=== PATIENT | male | born 1975 | race Caucasian/White ===

== ENCOUNTER 2017-04-03 08:23 | Day surgery (SDC) | payer MEDICARE, BC ==
--- NOTE | 2017-04-03 06:11 | History and Physical Report ---
DATE: 04/03/2017. CHIEF COMPLAINT AND HISTORY OF CHIEF COMPLAINT: This patient presents with a history of multiple sclerosis with spasticity and myoclonus. A spinal opioid infusion system with baclofen is in place. Over the last number of refills, battery depletion was identified. He is here for battery replacement. PAST MEDICAL HISTORY: Hypertension, multiple sclerosis. PAST SURGICAL HISTORY: Hand surgery. MEDICATIONS ON ADMISSION: To be provided. ALLERGIES: None. SOCIAL HISTORY: Caffeine. FAMILY HISTORY: Hypertension. REVIEW OF SYSTEMS: The patient is appropriate and in no acute distress. The patient is assistive device dependent for ambulation. The remainder of the systems review shows glasses, headaches, blood pressure, and depression. PHYSICAL EXAMINATION: General: Height is 5 feet, 10 inches. Weight is 160 pounds. Vital Signs: Unavailable. HEENT: Within normal limits. Lungs: Clear. Heart: Regular rate and rhythm. Abdomen: Nontender. Musculoskeletal: Examination of the musculoskeletal system identifies the pump at the left flank above the belt line. The incisional site is intact. Neurologic: Cranial nerves are intact. IMPRESSION: 1. MULTIPLE SCLEROSIS, ICD-10 CODE G35.0. 2. BACLOFEN INFUSION DEVICE, SPINAL. PLAN: The patient is here for battery replacement on an outpatient basis. The potential risks, side effects, and complications have all been carefully reviewed and discussed. The procedure will be considered outpatient. An overnight stay will be evaluated but should not be necessary. YURY PALMA D.O. Date & Time JOB NUMBER: [id number] cc: Krishna Winter
[~2017-04-03 08:23] MED LIST: ACETAMINOPHEN 1,000 MG/100 ML BTL IV ONE; BACLOFEN IV ONE; CEFAZOLIN 2 Gram 2 GM/50 ML BAG IVPB ONE; FAMOTIDINE 20MG TABLET PO ONE; MECLIZINE 25 MG TABLET PO ONE; METOCLOPRAMIDE 10 MG TABLET PO ONE; SODIUM CHLORIDE 0.9% IV ONE; VANCOMYCIN HCL 1,000 MG in 0.9 % SODIUM CHLORIDE 250ML 250 ML IVPB ONE
[2017-04-03] MEDS ORDERED: LIDOCAINE 2% MDV (20MG/ML) 20ML VIAL IV ONE (08:24)
[2017-04-03] MEDS ORDERED: VANCOMYCIN HCL 500 MG VIAL IV ONE (08:24)
[2017-04-03] MEDS ORDERED: FENTANYL PF 100MCG/2ML VIAL IV ONE (08:24)
[2017-04-03] MEDS ORDERED: MIDAZOLAM HCL 2MG/2ML VIAL IV ONE (08:24)
[2017-04-03] MEDS ORDERED: ONDANSETRON HCL IV 4 MG/2 ML VIAL IVP ONE (08:24)
[2017-04-03] MEDS ORDERED: BUPIVACAINE 0.75% W/EPI MPF 30ML VIAL IVP ONE (08:24)
[2017-04-03] MEDS ORDERED: LIDOCAINE 1% W/EPI 1:200,000 MPF 30ML SQ ONE (08:24)
[2017-04-03] MEDS ORDERED: PROPOFOL 10 MG/ML VIAL IV ONE (08:24)
--- NOTE | 2017-04-03 16:20 | Operative Note - [place] ---
DATE OF SURGERY: 04/03/17 PREOPERATIVE DIAGNOSES: 1. MULTIPLE SCLEROSIS, ICD-10 CODE = G35.0. 2. BACLOFEN SPINAL OPIOID INFUSION SYSTEM BATTERY DEPLETION. OPERATION: 1. INCISION, SUBCUTANEOUS DISSECTION, REMOVAL, AND REPLACEMENT OF PROGRAMMABLE PUMP AT LEFT FLANK. PRE-FILLED BACLOFEN. 2. DIAGNOSTIC MYELOGRAPHY WITH RADIOLOGIC SUPERVISION AND INTERPRETATION. 3. PLACEMENT OF PUMP INTO PREVIOUS POUCH. CLOSURE OF INCISIONS VICRYL FOR FASCIA , RUNNING SUBCUTICULAR VICRYL FOR SKIN, DERMABOND CLOSURE. 4. PROGRAMMING OF PUMP TO DELIVERY BY CONTINUOUS INFUSION BACLOFEN 1000 MCG CONCENTRATION AT 100 MCG PER DAY. SURGEON: YURY PALMA D.O. ANESTHESIA: LOCAL SEDATION. ANESTHESIA PROVIDER: KEENAN DAMICO CRNA INDICATION: This patient presents with a history of multiple sclerosis with a Baclofen infusion device managing symptom pattern including spasticity and myoclonus. After the last number of refills have identified battery depletion, she is here for battery replacement. PROCEDURE: Intravenous line, vital sign monitoring, IV sedation, prepped and draped in sterile technique. Under imaging, the previous incisional line at the left flank was infiltrated, incision made, and subcutaneous dissection was conducted to the pouch. The pump was exteriorized and from the internal catheter. A new pump placed onto the field, pre-filled Baclofen 1000 mcg per mL, was then interfaced to the existing catheter. Antibiotic irrigation. Bovie for hemostasis. The pump was secured into the pouch with a nonabsorbable suture and a pump eyelet. With the pump in the pouch, a 24-gauge Malin needle was inserted into the access port and diagnostic myelography was performed under radiologic supervision and interpretation. Contrast flow characteristics tip of catheter T11 appropriate flow. Catheter integrity was confirmed and functionality noted. At that point, the incision was closed Vicryl for fascia, running subcuticular Vicryl for skin. Dermabond closure approximating the wound. The pump was then programmed back to its original parameters 100 mcg per day Baclofen. He was transported to the Recovery Room stable showing no side-effects from the procedure or the sedation. When he was in the Recovery Room, his program was then verified and noted as continuing appropriately. He had tolerated the procedure without difficulty. DISCHARGE INSTRUCTIONS: 1. The sites will remain clean and dry although the Dermabond will allow showering. 2. Standard medications resumed including Levaquin, the antibiotic, 500 mg once a day for 14 days. 3. The office will contact the patient at home to evaluate the sites in 5-7 days. Through this period of time, activities should stay low. All other instructions provided, numbers to contact, problems given. He will then be prepared for discharged. cc: Dr. Chino Rivera JOB NUMBER: [id number] MTDD
== END 2017-04-03 11:30 | disposition home or self-care (01) ==
LOC: SUR 08:23
PROVIDERS: ATTEND Pain Medicine Interventional Pain Medicine
DX: T85.695A Other mechanical complication of other nervous system device, implant or graft, initial encounter (principal); G35 Multiple sclerosis
CPT/HCPCS: 62367; 62362; 00300; Q9967; J2405; J3370; J3010; J0475; J3490; J7050